=== PATIENT | male | born 1975 | race Caucasian/White ===

== ENCOUNTER 2017-06-28 20:09 | Inpatient (IN) | payer BC, OTHER ==
[2017-06-28] MEDS ORDERED: Etomidate 2 MG/ML 20 ML SDV IVPUSH ONE ×2 (20:20→21:08)
[2017-06-28] MEDS ORDERED: Diphtheria,Pertussis(Acell),Tetanus Vaccine 0.5 ML SDV IM ONE (20:32)
--- NOTE | 2017-06-28 20:34 | EDM.PDOC ---
ED HPI GENERAL MEDICAL PROBLEM - General Chief Complaint: Upper Extremity Injury/Pain Stated Complaint: [facility] Time Seen by Provider: 06/28/17 20:10 Source of Information: Reports: Patient History Limitations: Reports: No Limitations - History of Present Illness INITIAL COMMENTS - FREE TEXT/NARRATIVE: 42-year-old male presents to the ED with an acute injury to his right lower extremity. He states he was riding a 15-year-old horse more or less in a circular fashion when the horse decided to get run she. He decided to exit the horse and stepped off pivoting his right foot on the ground with a horse still moving. Is unsure if the horse may have stepped on versus acute severe twisting injury to his ankle. At any rate he went down to the ground and identified that there was a bone sticking through the medial aspect of his cowboy boot. The ambulance was summoned. He was actually already in a half ton truck 1 ambulance met them. He was given 1 mg of morphine 2 doses en route to the hospital as he indicated he is very sensitive to medications. Clear when his last tetanus toxoid was updated. Denies any allergies. Takes only lisinopril daily for hypertension. Last meal was around 1730 hrs. today. Onset: Today Onset Date: 06/28/17 Onset Time: 19:10 Duration: Minutes: Location: Reports: Lower Extremity, Right (Ankle) Right Lower Leg Pain Score (Numeric/FACES): 5 - Related Data Allergies Allergy/AdvReac Type Severity Reaction Status Date / Time No Known Allergies Allergy Verified 06/28/17 21:28 Home Meds: Home Meds FLUoxetine [PROzac] 10 mg PO BEDTIME 06/28/17 [History] Lisinopril 10 mg PO DAILY 06/28/17 [History] Past Medical History Cardiovascular History: Reports: Hypertension Psychiatric History: Reports: Anxiety - Past Surgical History HEENT Surgical History: Reports: Adenoidectomy, Naso-Sinus Surgery, Tonsillectomy GI Surgical History: Reports: Appendectomy, Hernia Repair/Other Other Male Surgeries/Procedures: Testicle surg Other Neurological Surgeries/Procedures: "nerve cut" Musculoskeletal Surgical History: Reports: Shoulder Surgery Other Musculoskeletal Surgeries/Procedures:: Knee Social & Family History - Living Situation & Occupation Living situation: Reports: Occupation: Employed Review of Systems - Review of Systems Review Of Systems: See Below Constitutional: Reports: No Symptoms Eyes: Reports: No Symptoms Ears: Reports: No Symptoms Nose: Reports: No Symptoms Mouth/Throat: Reports: No Symptoms Respiratory: Reports: No Symptoms Cardiovascular: Reports: No Symptoms GI/Abdominal: Reports: No Symptoms Genitourinary: Reports: No Symptoms Musculoskeletal: Reports: Back Pain (Occasional problems with back pain.) Skin: Reports: No Symptoms Neurological: Reports: No Symptoms Psychiatric: Reports: No Symptoms ED EXAM, GENERAL - Physical Exam Exam: See Below Exam Limited By: No Limitations General Appearance: Alert, WD/WN, Mild Distress Eye Exam: Bilateral Eye: Normal Inspection (In obvious pain and discomfort.) Ears: Normal TMs Throat/Mouth: Normal Inspection, Normal Lips, Normal Oropharynx, Other (No injuries to the oropharyngeal cavity bite andrea to the tongue etc.) Head: Atraumatic, Normocephalic Neck: Normal Inspection, Supple, Non-Tender, Full Range of Motion. No: Lymphadenopathy (L), Lymphadenopathy (R) Respiratory/Chest: No Respiratory Distress, Lungs Clear, Normal Breath Sounds, No Accessory Muscle Use, Other (No pain on compression of ribs and sternum.) Cardiovascular: Normal Peripheral Pulses, Regular Rate, Rhythm, No Edema, No Gallop, No Murmur Peripheral Pulses: 3+: Posterior Tibial (L), Dorsalis Pedis (L), Dorsalis Pedis (R) GI/Abdominal: Normal Bowel Sounds, Soft, Non-Tender, No Organomegaly, No Distention Back Exam: Normal Inspection, Full Range of Motion Extremities: Normal Inspection, Normal Range of Motion, Non-Tender, No Pedal Edema, Normal Capillary Refill Neurological: Alert, Oriented, CN II-XII Intact, Normal Cognition Psychiatric: Normal Affect, Normal Mood EKG INTERPRETATION EKG Date: 06/28/17 Time: 21:15 Rhythm: NSR Rate (Beats/Min): 76 [place]: Normal P-Wave: Present QRS: Normal ST-T: Normal QT: Prolonged (Slightly prolonged for rate.) EKG Interpretation Comments: Normal ECG Course - Vital Signs Last Recorded V/S: Last Vital Signs Temp 36.7 C 06/28/17 21:14 Pulse 88 06/28/17 21:14 Resp 18 06/28/17 21:14 BP 150/85 H 06/28/17 21:14 Pulse Ox 98 06/28/17 21:14 - Orders/Labs/Meds Orders: Active Orders 24 hr Category Date Time Status Vaccines to be Administered [RC] PER UNIT ROUTINE Care 06/28/17 20:32 Active Ankle Min 3V Rt [CR] Stat Exams 06/28/17 20:31 Ordered Tibia Fibula Rt [CR] Stat Exams 06/28/17 20:30 Ordered ABO/RH TYPE [BBK] Stat Lab 06/28/17 20:31 Ordered CBC WITH MANUAL DIFF [HEME] Stat Lab 06/28/17 20:31 Ordered COMPREHENSIVE METABOLIC PN,CMP [CHEM] Stat Lab 06/28/17 20:31 Ordered INR,PT,PROTHROMBIN TIME [COAG] Stat Lab 06/28/17 20:31 Ordered PTT,PARTIAL THROMBOPLSTIN TIME [COAG] Stat Lab 06/28/17 20:32 Ordered Sodium Chloride 0.9% [Normal Saline] 1,000 ml Med 06/28/17 20:30 Active IV ASDIRECTED ceFAZolin [Ancef] 2,000 mg Med 06/28/17 20:32 Active Sodium Chloride 0.9% [Normal Saline] 100 ml IV ONETIME Medication Orders Sodium Chloride (Normal Saline) 1,000 mls @ 200 mls/hr IV ASDIRECTED MATIAS Last Admin: 06/28/17 21:04 Dose: 200 mls/hr Cefazolin Sodium 2,000 mg/ (Sodium Chloride) 100 mls @ 100 mls/hr IV ONETIME ONE Stop: 06/28/17 21:31 Last Admin: 06/28/17 21:05 Dose: 100 mls/hr Meds: Medications Generic Name Dose Route Start Last Admin Trade Name Freq PRN Reason Stop Dose Admin Sodium Chloride 1,000 mls @ 200 mls/hr 06/28/17 20:30 06/28/17 21:04 Normal Saline IV 200 mls/hr ASDIRECTED MATIAS Administration Cefazolin Sodium 2,000 mg/ 100 mls @ 100 mls/hr 06/28/17 20:32 06/28/17 21:05 Sodium Chloride IV 06/28/17 21:31 100 mls/hr ONETIME ONE Administration Discontinued Medications Generic Name Dose Route Start Last Admin Trade Name Freq PRN Reason Stop Dose Admin Diphtheria/Tetanus/Acell Pertussis 0.5 ml 06/28/17 20:32 06/28/17 21:06 Adacel IM 06/28/17 20:33 0.5 ml .ONCE ONE Administration Etomidate Confirm 06/28/17 20:20 06/28/17 21:07 Amidate Administered 06/28/17 20:21 Not Given Dose 40 mg IVPUSH .STK-MED ONE Etomidate 24 mg 06/28/17 21:08 Amidate IVPUSH 06/28/17 21:09 ONETIME ONE Hydromorphone HCl Confirm 06/28/17 20:42 06/28/17 21:06 Dilaudid Administered 06/28/17 20:43 Not Given Dose 0.5 mg .ROUTE .STK-MED ONE Hydromorphone HCl 0.5 mg 06/28/17 21:08 Dilaudid IVPUSH 06/28/17 21:09 ONETIME ONE - Radiology Interpretation Free Text/Narrative:: 42-year-old male presents to the ED with an acute injury to his right lower extremity i.e. ankle area. Patient states he was riding a horse in a circular fashion when the horse became a little bit out of control. He elected to get off a horse and when his right leg hit the ground I suspect there was a violent twisting force to the ankle and foot as his foot planted. Immediately hit the ground and appreciated that his leg bone and exited the medial aspect of his cowboy boot. He did not hit his head he did not hurt his neck he denies any chest pain or rib pain. Only pain was to his right lower extremity. [place]. He reports that he is extremely sensitive to medications. He did receive 1 mg of morphine 2 doses en route which took his pain from a 07/21/05. Unclear when his last tetanus toxoid was and therefore will be updated in the ED. Plan he will require sedation for us to allow removal of his, but boot and expose the fracture site. - Re-Assessments/Exams Free Text/Narrative Re-Assessment/Exam: 06/28/17 21:00: Patient received etomidate 0.3 mg/kg with his weight of 85 kg. We did give him 12 mg of etomidate to facilitate removal of his cowboy boot and expose the tibial bone. Was unable to reduce it was the fact the distal tibia is very dirty and covered with grass and dirt. I therefore left it open as he will have to go to surgery at any rate. He will receive 2 g of Ancef intravenously. Once he aroused from the etomidate he was given Dilaudid 0.5 mg IV for pain relief. His wound was wrapped with a wet saline gauze and Kerlix. Dr. Larios orthopedic surgeon salon/spa manager will see him in consultation with a view to going to the OR for debridement and washing of the wound. 06/28/17 21:27 Dr. Larios today as asked the patient to be given gentamicin as well. He was given therefore 100 mg IV. ECG was sinus rhythm at 76/m with no abnormalities detected. Departure - Departure Time of Disposition: 21:31 Disposition: Admitted As Inpatient 65 Condition: Fair Clinical Impression: Open fracture of right distal tibia Qualifiers: Encounter type: initial encounter Open fracture type: open type III Fracture alignment: displaced Fracture of distal end of fibula Qualifiers: Encounter type: initial encounter Fracture type: closed - Discharge Information Forms: ED Department Discharge Additional Instructions: Patient to be admitted to the hospital due to open fracture distal right tibia and comminuted fracture distal fibula. Dr. Mcmahon orthopedic surgeon will be taking him to the OR shortly for definitive orthopedic surgical management. - My Orders Last 24 Hours: My Active Orders 06/28/17 20:30 Tibia Fibula Rt [CR] Stat Sodium Chloride 0.9% [Normal Saline] 1,000 ml IV ASDIRECTED 06/28/17 20:31 Ankle Min 3V Rt [CR] Stat ABO/RH TYPE [BBK] Stat CBC WITH MANUAL DIFF [HEME] Stat COMPREHENSIVE METABOLIC PN,CMP [CHEM] Stat INR,PT,PROTHROMBIN TIME [COAG] Stat 06/28/17 20:32 Vaccines to be Administered [RC] PER UNIT ROUTINE PTT,PARTIAL THROMBOPLSTIN TIME [COAG] Stat ceFAZolin [Ancef] 2,000 mg Sodium Chloride 0.9% [Normal Saline] 100 ml IV ONETIME - Assessment/Plan Last 24 Hours: My Active Orders 06/28/17 20:30 Tibia Fibula Rt [CR] Stat Sodium Chloride 0.9% [Normal Saline] 1,000 ml IV ASDIRECTED 06/28/17 20:31 Ankle Min 3V Rt [CR] Stat ABO/RH TYPE [BBK] Stat CBC WITH MANUAL DIFF [HEME] Stat COMPREHENSIVE METABOLIC PN,CMP [CHEM] Stat INR,PT,PROTHROMBIN TIME [COAG] Stat 06/28/17 20:32 Vaccines to be Administered [RC] PER UNIT ROUTINE PTT,PARTIAL THROMBOPLSTIN TIME [COAG] Stat ceFAZolin [Ancef] 2,000 mg Sodium Chloride 0.9% [Normal Saline] 100 ml IV ONETIME
[2017-06-28] MEDS ORDERED: HYDROmorphone 0.5 MG/0.5 ML Syringe ONE (20:42)
[2017-06-28] MEDS: Sodium Chloride 0.9% 1,000 ML IV SCH (21:04)
[2017-06-28] MEDS ORDERED: HYDROmorphone 0.5 MG/0.5 ML Syringe IVPUSH ONE (21:08)
--- NOTE | 2017-06-28 21:14 | PCM.PREANE ---
Preanesthetic Assessment - Anesthesia/Transfusion/Family Hx Anesthesia History: Prior Anesthesia Without Reaction Family History of Anesthesia Reaction: No Transfusion History: No Prior Transfusion(s) Intubation History: Unknown - Review of Systems General: No Symptoms Pulmonary: No Symptoms (smokes 1 pack/day for 25 years.) Cardiovascular: No Symptoms (HTN) Gastrointestinal: No Symptoms Neurological: No Symptoms Other: Reports: Sinus Problem (seasonal allergies), Depression, Anxiety - Physical Assessment NPO Status Date: 06/28/17 NPO Status Time: 17:30 Pulse: 88 O2 Sat by Pulse Oximetry: 98 Respiratory Rate: 18 Blood Pressure: 150/85 Temperature: 36.7 C Vital Signs: Last Vital Signs Temp 36.7 C 06/28/17 20:18 Pulse 88 06/28/17 20:18 Resp 18 06/28/17 20:18 BP 150/85 H 06/28/17 20:18 Pulse Ox 98 06/28/17 20:18 Height: 1.8 m Weight: 85 kg ASA Class: 2E Mental Status: Alert & Oriented x3 Airway Class: Mallampati = 2 Dentition: Reports: Normal Dentition, Caries Thyro-Mental Finger Breadths: 3 Mouth Opening Finger Breadths: 3 ROM/Head Extension: Full Lungs: Clear to Auscultation, Normal Respiratory Effort Cardiovascular: Regular Rate, Regular Rhythm - Lab Values: All values reviewed and noted and within acceptable ranges to proceed with scheduled surgery. - Imaging/EKG Impressions: EKG: SR rate=77 minimal QT prolongation for rte. - Allergies Allergies/Adverse Reactions: Allergies Allergy/AdvReac Type Severity Reaction Status Date / Time No Known Allergies Allergy Verified 06/28/17 21:28 - Anesthesia Plan Pre-Op Medication Ordered: None - Acknowledgements Anesthesia Type Planned: General Anesthesia Pt an Appropriate Candidate for the Planned Anesthesia: Yes Alternatives and Risks of Anesthesia Discussed w Pt/Guardian: Yes Pt/Guardian Understands and Agrees with Anesthesia Plan: Yes PreAnesthesia Questionnaire Cardiovascular History: Reports: Hypertension Psychiatric History: Reports: Anxiety - Past Surgical History HEENT Surgical History: Reports: Adenoidectomy, Naso-Sinus Surgery, Tonsillectomy GI Surgical History: Reports: Appendectomy, Hernia Repair/Other Other Male Surgeries/Procedures: Testicle surg Other Neurological Surgeries/Procedures: "nerve cut" Musculoskeletal Surgical History: Reports: Shoulder Surgery Other Musculoskeletal Surgeries/Procedures:: Knee - SUBSTANCE USE Smoking Status *Q: Current Status Unknown Recreational Drug Use History: No - HOME MEDS Home Medications: Home Meds FLUoxetine [PROzac] 10 mg PO BEDTIME 06/28/17 [History] Lisinopril 10 mg PO DAILY 06/28/17 [History] - CURRENT (IN HOUSE) MEDS Current Meds: Current Medications Sodium Chloride (Normal Saline) 1,000 mls @ 200 mls/hr IV ASDIRECTED MATIAS Last Admin: 06/28/17 21:04 Dose: 200 mls/hr Cefazolin Sodium 2,000 mg/ (Sodium Chloride) 100 mls @ 100 mls/hr IV ONETIME ONE Stop: 06/28/17 21:31 Last Admin: 06/28/17 21:05 Dose: 100 mls/hr Discontinued Medications Diphtheria/Tetanus/Acell Pertussis (Adacel) 0.5 ml IM .ONCE ONE Stop: 06/28/17 20:33 Last Admin: 06/28/17 21:06 Dose: 0.5 ml Etomidate (Amidate) Confirm Administered Dose 40 mg IVPUSH .STK-MED ONE Stop: 06/28/17 20:21 Last Admin: 06/28/17 21:07 Dose: Not Given Etomidate (Amidate) 24 mg IVPUSH ONETIME ONE Stop: 06/28/17 21:09 Hydromorphone HCl (Dilaudid) Confirm Administered Dose 0.5 mg .ROUTE .STK-MED ONE Stop: 06/28/17 20:43 Last Admin: 06/28/17 21:06 Dose: Not Given Hydromorphone HCl (Dilaudid) 0.5 mg IVPUSH ONETIME ONE Stop: 06/28/17 21:09
[2017-06-28] MEDS ORDERED: Gentamicin 40 MG/ML 2 ML Vial IV ONE (21:26)
[2017-06-28] MEDS ORDERED: Bupivacaine 0.25% 30 ML SDV ONE (21:28)
[2017-06-28] MEDS ORDERED: HYDROmorphone 1 MG/ML Syringe ONE ×2 (21:35→23:02)
[2017-06-28] MEDS ORDERED: Lidocaine 1% 4 ML ONE (21:35)
[2017-06-28] MEDS ORDERED: Dexamethasone 4 MG/ML SDV ONE (21:35)
[2017-06-28] MEDS ORDERED: Propofol 200 MG/20 ML SDV ONE ×2 (21:35→22:43)
[2017-06-28] MEDS ORDERED: Lactated Ringers 2,000 ML ONE (21:35)
[2017-06-28] MEDS ORDERED: Ondansetron 4 MG/2 ML SDV ONE (21:35)
[2017-06-28] MEDS ORDERED: Rocuronium 50 MG/5 ML Vial ONE (21:35)
[2017-06-28] MEDS ORDERED: fentaNYL 250 MCG/5 ML SDV ONE (21:36)
[2017-06-28] MEDS ORDERED: Midazolam 1 MG/ML 2 ML SDV ONE (21:36)
[2017-06-28] MEDS ORDERED: Acetaminophen/oxyCODONE 325-5 MG Tab PO PRN (21:44)
[2017-06-28] MEDS ORDERED: oxyCODONE 5 MG Tab PO PRN (21:44)
[2017-06-28] MEDS ORDERED: ceFAZolin 2 GM in Premix Bag 1 BAG IV SCH (21:45)
[2017-06-28] MEDS ORDERED: Gentamicin Pediatric 10 MG/ML 2 ML SDV ONE ×2 (23:04→23:05)
[2017-06-28] MEDS ORDERED: ePHEDrine 50 MG/ML SDV IVPUSH PRN (23:11)
[2017-06-28] MEDS ORDERED: fentaNYL 100 MCG/2 ML SDV IVPUSH PRN (23:11)
[2017-06-28] MEDS ORDERED: Ondansetron 4 MG/2 ML SDV IVPUSH PRN (23:11)
[2017-06-28] MEDS ORDERED: Glycopyrrolate 0.2 MG/ML SDV ONE ×5 (23:14)
[2017-06-28] MEDS ORDERED: Neostigmine Methylsulfate 10 MG/10 ML MDV ONE (23:14)
[2017-06-28] MEDS ORDERED: Phenylephrine 1 MG in Sodium Chloride 0.9% 10 ML IV SCH (23:15)
[2017-06-28] MEDS ORDERED: Ketamine 500 mg/10 ML MDV ONE (23:56)
--- NOTE | 2017-06-29 00:24 | PCM.POSTAN ---
POST ANESTHESIA ASSESSMENT - MENTAL STATUS Mental Status: Alert - VITAL SIGNS Pulse Rate: 92 SaO2: 95 Resp Rate: 11 Blood Pressure: 148/82 Temperature: 37.2 C - RESPIRATORY Respiratory Status: Respiratory Rate WNL, Airway Patent, O2 Saturation Stable, Supplemental Oxygen - CARDIOVASCULAR CV Status: Pulse Rate WNL, Blood Pressure Stable - GASTROINTESTINAL GI Status: No Symptoms - POST OP HYDRATION Hydration Status: Adequate & Stable
[2017-06-29] MEDS: HYDROmorphone 0.5 MG/0.5 ML Syringe IVPUSH PRN ×9 (00:33→23:58)
[2017-06-29] MEDS: SODIUM CHLORIDE IV SCH ×8 (02:21→23:55)
[2017-06-29] MEDS: PENICILLIN POTASSIUM IV SCH ×8 (02:21→23:55)
[2017-06-29] MEDS: Sodium Chloride 0.9% 1,000 ML IV SCH ×2 (02:58→08:33)
[2017-06-29] MEDS ORDERED: Acetaminophen/oxyCODONE 325-5 MG Tab PO PRN (05:14)
[2017-06-29] MEDS ORDERED: HYDROmorphone 1 MG/ML Syringe IVPUSH ONE (05:19)
[2017-06-29] MEDS: oxyCODONE 5 MG Tab PO PRN ×3 (05:33→18:31)
[2017-06-29] MEDS: ceFAZolin 2 GM in Premix Bag 1 BAG IV SCH ×3 (05:50→21:03)
[2017-06-29] MEDS: Cyclobenzaprine 10 MG Tab PO PRN ×2 (08:31→17:53)
[2017-06-29] MEDS ORDERED: Bisacodyl 5 MG Tab PO PRN (09:05)
[2017-06-29] MEDS ORDERED: diphenhydrAMINE 50 MG/ML SDV IV PRN (09:05)
[2017-06-29] MEDS ORDERED: Docusate Sodium 100 MG Cap PO PRN (09:06)
[2017-06-29] MEDS ORDERED: Magnesium Hydroxide 400 MG/5 ML Susp 30 ML Cup PO PRN (09:06)
[2017-06-29] MEDS ORDERED: Naloxone 0.4 MG/ML SDV IV PRN (09:07)
[2017-06-29] MEDS ORDERED: Ondansetron 4 MG/2 ML SDV IVPUSH PRN (09:07)
--- NOTE | 2017-06-29 09:42 | PCM48HPAN ---
Post Anesthesia Note - EVALUATION WITHIN 48HRS OF ANESTHETIC Vital Signs in Normal Range: Yes Patient Participated in Evaluation: Yes Respiratory Function Stable: Yes Airway Patent: Yes Cardiovascular Function Stable: Yes Hydration Status Stable: Yes Pain Control Satisfactory: Yes Nausea and Vomiting Control Satisfactory: Yes Mental Status Recovered: Yes
[2017-06-29] MEDS: Lisinopril 10 MG Tab PO SCH (10:18)
[2017-06-29] MEDS: Enoxaparin 40 MG/0.4 ML Syringe SUBCUT SCH (10:19)
[2017-06-29] MEDS: Acetaminophen/oxyCODONE 325-5 MG Tab PO PRN ×3 (10:32→20:57)
[2017-06-29] MEDS ORDERED: Penicillin G Potassium 5,000,000 Unit Vial ONE ×2 (10:45→18:22)
[2017-06-29] MEDS: FLUoxetine 10 MG Cap PO SCH (20:57)
[2017-06-30] MEDS: oxyCODONE 5 MG Tab PO PRN ×3 (00:03→19:45)
[2017-06-30] MEDS: Acetaminophen/oxyCODONE 325-5 MG Tab PO PRN ×3 (02:18→14:31)
[2017-06-30] MEDS: SODIUM CHLORIDE IV SCH ×6 (03:49→23:16)
[2017-06-30] MEDS: PENICILLIN POTASSIUM IV SCH ×6 (03:49→23:16)
[2017-06-30] MEDS: Cyclobenzaprine 10 MG Tab PO PRN ×2 (03:50→15:24)
[2017-06-30] MEDS: ceFAZolin 2 GM in Premix Bag 1 BAG IV SCH ×3 (05:13→22:03)
[2017-06-30] MEDS: Saccharomyces Boulardii (Probiotic) 250 MG Cap PO SCH ×2 (08:53→20:43)
[2017-06-30] MEDS: HYDROmorphone 0.5 MG/0.5 ML Syringe IVPUSH PRN ×3 (08:54→20:42)
[2017-06-30] MEDS: Lisinopril 10 MG Tab PO SCH (08:55)
[2017-06-30] MEDS: Enoxaparin 40 MG/0.4 ML Syringe SUBCUT SCH (08:55)
--- NOTE | 2017-06-30 08:56 | CT ---
CT right ankle Technique: Multiple axial sections through the right ankle were obtained. Reconstructed coronal and sagittal images were obtained. Comparison: Previous right ankle x-ray of 06/28/17 is available. Findings: Comminuted distal tibial fracture is seen. One fracture line extends anteriorly within the tibia in an oblique direction orientated from the medial to lateral aspect of the tibia. This fracture line is displaced up to 7 mm. Additional fracture is noted to the medial and posterolateral aspects of the tibia with posterolateral fracture line being widened by about 1.0 cm. Fracture line medially is widened by about 1.6 mm. Slightly comminuted distal diaphyseal fibular fracture is seen which shows a displaced fragment in a medial direction. Diffuse soft tissue swelling is seen. Impression: 1. Comminuted distal tibial fracture with articular extension. Greatest displacement is about 1 cm. 2. Fibular shaft fracture with displaced fragment being seen. 3. Diffuse soft tissue swelling. Diagnostic code #3
--- NOTE | 2017-06-30 08:58 | CR ---
Right ankle: Four views of the right ankle were obtained. Bimalleolar fracture is seen with dislocation. Diffuse soft tissue swelling is noted. Fibular fracture shows mild comminution. Fracture also noted within the lateral edge of the distal tibia. Dislocation of the tibia is medially and posteriorly. Impression: 1. Fracture/dislocation with diffuse soft tissue swelling. Diagnostic code #5
--- NOTE | 2017-06-30 12:15 | CR ---
Right ankle: Seven fluoroscopic spot views were obtained of the right ankle. Comparison: Previous studies performed earlier on same day. Dislocation has been reduced. Ankle mortise is symmetric. Comminuted distal diaphyseal fracture within the fibula is seen. Fracture is noted off the corner of the lateral tibia as well as medial malleolar fracture. Study shows placement of internal to external fixation. Fluoroscopy time given as 49.0 seconds. Impression: 1. Reduction of previous fractures and dislocation. 2. Placement of internal and external fixation device. Diagnostic code #2
--- NOTE | 2017-06-30 12:15 | CR ---
Right tibia and fibula: Two views of the right tibia and fibula were obtained. Dislocation of the tibia in medial and posterior direction is seen. Ankle fracture is again noted. No proximal fracture is seen. Soft tissue swelling is noted. Impression: 1. Dislocated ankle with fracturing. 2. No proximal abnormality is seen. Diagnostic code #3
[2017-06-30] MEDS: FLUoxetine 10 MG Cap PO SCH (20:43)
[2017-07-01] MEDS: Cyclobenzaprine 10 MG Tab PO PRN ×2 (00:16→11:11)
[2017-07-01] MEDS: HYDROmorphone 0.5 MG/0.5 ML Syringe IVPUSH PRN ×2 (00:58→07:37)
[2017-07-01] MEDS: oxyCODONE 5 MG Tab PO PRN ×3 (02:57→14:42)
[2017-07-01] MEDS: Saccharomyces Boulardii (Probiotic) 250 MG Cap PO SCH (08:29)
[2017-07-01] MEDS: Enoxaparin 40 MG/0.4 ML Syringe SUBCUT SCH (08:29)
[2017-07-01] MEDS: Lisinopril 10 MG Tab PO SCH (09:55)
[2017-07-01 14:45] VITALS: BP 140/78
--- NOTE | 2017-07-01 16:53 | PCM.SURGPN ---
- General Info Date of Service: 07/01/17 POD#: 3 Functional Status: Reports: Pain Controlled, Tolerating Diet, Ambulating, Urinating, Other (The pt and his feel the pt is prepared for discharge to home.) - Patient Data Vitals - Most Recent: Last Vital Signs Temp 99.0 F 07/01/17 14:38 Pulse 106 H 07/01/17 14:38 Resp 16 07/01/17 14:38 BP 140/78 07/01/17 14:38 Pulse Ox 92 L 07/01/17 14:38 Weight - Most Recent: 185 lb 9.6 oz I&O - Last 24 Hours: Intake & Output 07/01/17 07/01/17 07/01/17 06:59 14:59 22:59 Intake Total 3053 360 900 Output Total 4580 1650 Balance -1527 360 -750 Lab Results Last 24 Hrs: Laboratory Results - last 24 hr 07/01/17 07/01/17 Range/Units 05:57 09:30 Gentamicin Peak 4.4 (4.0-10.0) ug/mL Gentamicin Trough 0.9 (0.0-1.9) ug/mL Med Orders - Current: Current Medications Discontinued Medications Bisacodyl (Dulcolax) 5 mg PO DAILY PRN PRN Reason: Constipation Bupivacaine HCl (Marcaine 0.25%) Confirm Administered Dose 30 ml .ROUTE .STK- MED ONE Stop: 06/28/17 21:29 Cyclobenzaprine HCl (Flexeril) 10 mg PO Q8H PRN PRN Reason: Spasms Last Admin: 07/01/17 11:11 Dose: 10 mg Dexamethasone (Dexamethasone) Confirm Administered Dose 4 mg .ROUTE .STK-MED ONE Stop: 06/28/17 21:36 Diphenhydramine HCl (Benadryl) 25 mg IV Q4H PRN PRN Reason: Itching Diphtheria/Tetanus/Acell Pertussis (Adacel) 0.5 ml IM .ONCE ONE Stop: 06/28/17 20:33 Last Admin: 06/28/17 21:06 Dose: 0.5 ml Docusate Sodium (Colace) 100 mg PO BID PRN PRN Reason: Constipation Last Admin: 06/29/17 20:57 Dose: 100 mg Enoxaparin Sodium (Lovenox) 40 mg SUBCUT DAILY MATIAS Last Admin: 07/01/17 08:29 Dose: 40 mg Ephedrine Sulfate (Ephedrine Sulfate) 5 mg IVPUSH ASDIRECTED PRN PRN Reason: Hypotension Etomidate (Amidate) Confirm Administered Dose 40 mg IVPUSH .STK-MED ONE Stop: 06/28/17 20:21 Last Admin: 06/28/17 21:07 Dose: Not Given Etomidate (Amidate) 24 mg IVPUSH ONETIME ONE Stop: 06/28/17 21:09 Last Admin: 06/28/17 20:30 Dose: 24 mg Fentanyl (Sublimaze) Confirm Administered Dose 250 mcg .ROUTE .STK-MED ONE Stop: 06/28/17 21:37 Fentanyl (Sublimaze) 50 mcg IVPUSH Q5M PRN PRN Reason: Pain Last Admin: 06/29/17 01:14 Dose: 50 mcg Fluoxetine HCl (Prozac) 10 mg PO BEDTIME [facility] Last Admin: 06/30/17 20:43 Dose: 10 mg Gentamicin Sulfate (Gentamicin) 100 mg IV ONETIME ONE Stop: 06/28/17 21:27 Last Admin: 06/29/17 08:43 Dose: Not Given Gentamicin Sulfate (Gentamicin) Confirm Administered Dose 20 mg .ROUTE .STK-MED ONE Stop: 06/28/17 23:05 Last Admin: 06/29/17 02:21 Dose: Not Given Gentamicin Sulfate (Gentamicin) Confirm Administered Dose 160 mg .ROUTE .STK- MED ONE Stop: 06/28/17 23:06 Last Admin: 06/29/17 02:21 Dose: Not Given Glycopyrrolate (Robinul) Confirm Administered Dose 0.2 mg .ROUTE .STK-MED ONE Stop: 06/28/17 23:15 Glycopyrrolate (Robinul) Confirm Administered Dose 0.2 mg .ROUTE .STK-MED ONE Stop: 06/28/17 23:15 Glycopyrrolate (Robinul) Confirm Administered Dose 0.2 mg .ROUTE .STK-MED ONE Stop: 06/28/17 23:15 Glycopyrrolate (Robinul) Confirm Administered Dose 0.2 mg .ROUTE .STK-MED ONE Stop: 06/28/17 23:15 Glycopyrrolate (Robinul) Confirm Administered Dose 0.2 mg .ROUTE .STK-MED ONE Stop: 06/28/17 23:15 Hydromorphone HCl (Dilaudid) Confirm Administered Dose 0.5 mg .[address]OUTE .[facility] ONE Stop: 06/28/17 20:43 Last Admin: 06/28/17 21:06 Dose: Not Given Hydromorphone HCl (Dilaudid) 0.5 mg IVPUSH ONETIME ONE Stop: 06/28/17 21:09 Last Admin: 06/28/17 20:42 Dose: 0.5 mg Hydromorphone HCl (Dilaudid) Confirm Administered Dose 1 mg .ROUTE .[facility]-MED ONE Stop: 06/28/17 21:36 Hydromorphone HCl (Dilaudid) Confirm Administered Dose 1 mg .ROUTE .[facility] ONE Stop: 06/28/17 23:03 Hydromorphone HCl (Dilaudid) 0.5 mg IVPUSH Q15M PRN PRN Reason: severe pain Last Admin: 06/29/17 01:01 Dose: 0.5 mg Hydromorphone HCl (Dilaudid) 0.2 mg IVPUSH Q2H PRN PRN Reason: Pain Last Admin: 06/29/17 04:52 Dose: 0.2 mg Hydromorphone HCl (Dilaudid) 1 mg IVPUSH ONETIME ONE Stop: 06/29/17 05:20 Last Admin: 06/29/17 05:37 Dose: 0.2 mg Hydromorphone HCl (Dilaudid) 0.5 mg IVPUSH Q2H PRN PRN Reason: Pain Last Admin: 07/01/17 07:37 Dose: 0.5 mg Sodium Chloride (Normal Saline) 1,000 mls @ 200 mls/hr IV ASDIRECTED MATIAS Last Admin: 06/29/17 08:33 Dose: 200 mls/hr Cefazolin Sodium 2,000 mg/ (Sodium Chloride) 100 mls @ 100 mls/hr IV ONETIME ONE Stop: 06/28/17 21:31 Last Admin: 06/28/17 21:05 Dose: 100 mls/hr Lidocaine HCl (Xylocaine-Mpf 1%) Confirm Administered Dose 4 mls @ as directed .ROUTE .[facility] ONE Stop: 06/28/17 21:36 Lactated Ringer's (Ringers, Lactated) Confirm Administered Dose 2,000 mls @ as directed .ROUTE .STK-MED ONE Stop: 06/28/17 21:36 Penicillin G Potassium 4 (millunits/ Sodium Chloride) 100 mls @ 55 mls/hr IV Q4H [facility] Stop: 06/30/17 22:31 Last Admin: 06/29/17 10:31 Dose: Not Given Phenylephrine HCl 1 mg/ Sodium (Chloride) 10.1 mls @ 1 mls/sec IV TITRATE [facility] PRN Reason: Protocol Penicillin G Potassium 4 (millunits/ Sodium Chloride) 100 mls @ 55 mls/hr IV Q4H [facility] Stop: 07/01/17 00:50 Last Admin: 06/30/17 23:16 Dose: 55 mls/hr Cefazolin Sodium/Dextrose 2 gm (/ Premix) 50 mls @ 100 mls/hr IV Q8H [facility] Stop: 06/29/17 22:29 Last Admin: 06/29/17 21:03 Dose: 100 mls/hr Gentamicin Sulfate 150 mg/ (Sodium Chloride) 103.75 mls @ 103.75 mls/hr IV Q8H [facility] Last Admin: 06/30/17 14:26 Dose: 103 mls/hr Cefazolin Sodium/Dextrose 2 gm (/ Premix) 50 mls @ 100 mls/hr IV Q8H [facility] Stop: 06/30/17 22:29 Last Admin: 06/30/17 22:03 Dose: 100 mls/hr Gentamicin Sulfate 150 mg/ (Sodium Chloride) 103.75 mls @ 103.75 mls/hr IV Q8H [facility] Last Admin: 07/01/17 14:29 Dose: Not Given Ketamine HCl (Ketalar) Confirm Administered Dose 500 mg .ROUTE .STK-MED ONE Stop: 06/28/17 23:57 Lisinopril (Prinivil) 10 mg PO DAILY [facility] Last Admin: 07/01/17 09:55 Dose: 10 mg Magnesium Hydroxide (Milk Of Magnesia) 30 ml PO BID PRN PRN Reason: Constipation Midazolam HCl (Versed 1 Mg/Ml) Confirm Administered Dose 2 mg .ROUTE .STK-MED ONE Stop: 06/28/17 21:37 Naloxone HCl (Narcan) 0.1 mg IV Q5M PRN PRN Reason: OVERSEDATION Neostigmine Methylsulfate (Neostigmine Methylsulfate) Confirm Administered Dose 10 mg .ROUTE .STK-MED ONE Stop: 06/28/17 23:15 Ondansetron HCl (Zofran) Confirm Administered Dose 4 mg .ROUTE .STK-MED ONE Stop: 06/28/17 21:36 Ondansetron HCl (Zofran) 4 mg IVPUSH ONETIME PRN PRN Reason: Nausea/Vomiting Ondansetron HCl (Zofran) 4 mg IVPUSH Q6H PRN PRN Reason: Nausea/Vomiting Oxycodone HCl (Oxycodone) 5 mg PO Q6H PRN PRN Reason: pain Last Admin: 07/01/17 14:42 Dose: 5 mg Oxycodone/Acetaminophen (Percocet 325-5 Mg) 1 tab PO Q4H PRN PRN Reason: Pain Last Admin: 06/29/17 06:23 Dose: 1 tab Oxycodone/Acetaminophen (Percocet 325-5 Mg) 1 - 2 tab PO Q4H PRN PRN Reason: Pain Last Admin: 06/30/17 14:31 Dose: 2 tab Penicillin G Potassium (Pfizerpen) Confirm Administered Dose 5 millunits .ROUTE .STK-MED ONE Stop: 06/29/17 10:46 Last Admin: 06/29/17 11:31 Dose: Not Given Penicillin G Potassium (Pfizerpen) Confirm Administered Dose 5 millunits .ROUTE .STK-MED ONE Stop: 06/29/17 18:23 Last Admin: 06/29/17 20:24 Dose: Not Given Propofol (Diprivan 20 Ml) Confirm Administered Dose 200 mg .ROUTE .STK-MED ONE Stop: 06/28/17 21:36 Propofol (Diprivan 20 Ml) Confirm Administered Dose 200 mg .ROUTE .STK-MED ONE Stop: 06/28/17 22:44 Rocuronium [place] (Zemuron) Confirm Administered Dose 50 mg .ROUTE .STK-MED ONE Stop: 06/28/17 21:36 Saccharomyces Boulardii (Florastor) 250 mg PO BID MATIAS Last Admin: 07/01/17 08:29 Dose: 250 mg Senna/Docusate Sodium (Senna Plus) 1 tab PO BID PRN PRN Reason: Constipation - Exam Wound/Incisions: Other (No active bleeding noted on dressings/bandages. ) Lungs: Normal Respiratory Effort Extremities: Other (The pt was able to flex and extend toes of right foot. He was able to sense touch at the toes.) - Problem List Review Problem List Initiated/Reviewed/Updated: Yes - My Orders Last 24 Hours: Active Orders 24 hr Category Date Time Status Ready for Discharge [RC] PER UNIT ROUTINE Care 07/01/17 14:10 Active - Assessment Assessment (Free Text/Narrative):: POD#3 - irrigation and debridement and external fixator placement of left pilon fracture - Plan Plan (Free Text/Narrative):: 1. Discharge to home today. 2. NWB RLE. 3. Lovenox, frequent mobility. 4. Follow-up at the Clinic next week to discuss ORIF of right pilon fracture. The pt's case was discussed with Dr. Larios.
--- NOTE | 2017-07-02 07:02 | PCM.HP ---
H&P History of Present Illness - General Date of Service: 06/28/17 Source of Information: Patient, Provider History Limitations: Reports: No Limitations - History of Present Illness Initial Comments - Free Text/Narative: This is a 42 year old male who was riding a horse this evening when he jumped off and either had his right foot stepped on or it twisted and patient saw bone sticking out of his cowboy boot. Patient was subsequently brought to the emergency room where he was found to have an open right pilon fracture dislocation. Patient was given Ancef and tetanus update and I was contacted at that time. Patient denies any other injury other than the right ankle and denies previous pain to that area. Right Lower Leg Pain Score (Numeric/FACES): 6 - Related Data Allergies/Adverse Reactions: Allergies Allergy/AdvReac Type Severity Reaction Status Date / Time No Known Allergies Allergy Verified 06/28/17 21:28 Home Medications: Home Meds FLUoxetine [PROzac] 10 mg PO BEDTIME 06/28/17 [History] Lisinopril 10 mg PO DAILY 06/28/17 [History] Acetaminophen/oxyCODONE [Percocet 325-5 MG] 1 - 2 tab PO Q4H PRN #60 tablet 10/05 [Rx] Cyclobenzaprine [Flexeril] 10 mg PO Q8H PRN #40 tablet 07/01/17 [Rx] Docusate Sodium [Colace] 100 mg PO BID PRN cap 07/01/17 [Rx] Enoxaparin [Lovenox] 40 mg SUBCUT DAILY #14 syringe 07/01/17 [Rx] Saccharomyces Boulardii [Florastor] 250 mg PO BID cap 07/01/17 [Rx] Sennosides [Senna] 8.6 mg PO BID PRN tablet 07/01/17 [Rx] oxyCODONE 5 mg PO Q6H PRN #40 tablet 07/01/17 [Rx] Past Medical History Cardiovascular History: Reports: Hypertension Psychiatric History: Reports: Anxiety - Infectious Disease History Infectious Disease History: Reports: Chicken Pox - Past Surgical History HEENT Surgical History: Reports: Adenoidectomy, Naso-Sinus Surgery, Tonsillectomy GI Surgical History: Reports: Appendectomy, Hernia Repair/Other Other Male Surgeries/Procedures: Testicle surg Other Neurological Surgeries/Procedures: "nerve cut" Musculoskeletal Surgical History: Reports: Shoulder Surgery Other Musculoskeletal Surgeries/Procedures:: Knee Social & Family History - Family History Family Medical History: Noncontributory - Tobacco Use Smoking Status *Q: Current Every Day Smoker Years of Tobacco use: 30 Packs/Tins Daily: 0.5 Used Tobacco, but Quit: No - Caffeine Use Caffeine Use: Reports: Coffee - Recreational Drug Use Recreational Drug Use: No - Living Situation & Occupation Living situation: Reports: Occupation: Employed H&P Review of Systems - Review of Systems: Review Of Systems: ROS reveals no pertinent complaints other than HPI. Exam - Exam Exam: See Below - Vital Signs Vital Signs: Last Vital Signs Temp 37.2 C 07/01/17 14:38 Pulse 106 H 07/01/17 14:38 Resp 16 07/01/17 14:38 BP 140/78 07/01/17 14:38 Pulse Ox 92 L 07/01/17 14:38 Weight: 84.187 kg - Exam General: Alert, Cooperative Lungs: Normal Respiratory Effort Cardiovascular: Regular Rate, Regular Rhythm Physical Exam Comments:: RLE: large 10 cm open area noted over the medial malleolar region of the right ankle, exposed bone and mortise is noted with the posterior tibial tendon noted anteriorly to the bone, able to move all toes, sensation intact to light touch the medial, lateral, plantar, and dorsum of the foot, less than 2 second capillary refill of all toes, denies pain to the proximal fibula or knee, no calf tenderness, compartments are soft and compressible - Patient Data Lab Results Last 24 hrs: Laboratory Results - last 24 hr 07/01/17 07/01/17 Range/Units 05:57 09:30 Gentamicin Peak 4.4 (4.0-10.0) ug/mL Gentamicin Trough 0.9 (0.0-1.9) ug/mL Result Diagrams: 06/28/17 20:55 06/28/17 20:55 *Q Meaningful Use (ADM) - VTE *Q VTE Criteria *Q: - Stroke *Q Stroke Criteria *Q: - AMI *Q AMI Criteria *Q: Problem List Initiated/Reviewed/Updated: Yes Orders Last 24hrs: Active Orders 24 hr Category Date Time Status Ready for Discharge [RC] PER UNIT ROUTINE Care 07/01/17 14:10 Active Assessment/Plan Comment:: A: grade 2 open pilon fracture right ankle P: At this time I discussed with the and the patient that this is a surgical emergency and we need to take him to surgery to reduce the ankle and put an external fixator on with possible wound vac placement. Patient and his were in understanding and the risks, benefits, complications, and alternatives were discussed. We will proceed with this plan. Patient was given Gentamicin as well as Penicillin G secondary to the nature of the open injury. He will be admitted for pain control as well as observation for compartment syndrome after surgery. Definitive fixation will be in roughly two weeks from now.
--- NOTE | 2017-07-02 07:07 | PCM.OPNOTE ---
- General Post-Op/Procedure Note Date of Surgery/Procedure: 06/28/17 Operative Procedure(s): irrigation and debridement right open pilon fracture with great than ten square centemiters of soft tissue and bone with external fixation Pre Op Diagnosis: grade 2 open right pilon fracture with fibula fracture Post-Op Diagnosis: Same Anesthesia Technique: General ET Tube Primary Surgeon: Ranjeet Larios Anesthesia Provider: Di Dinero Doughnut Machine Operator Helper: Scooter Child EBL in mLs: 100 Complications: None Condition: Good Free Text/Narrative:: Intake & Output 07/01/17 07/02/17 07/02/17 22:59 06:59 14:59 Intake Total 900 Output Total 1650 Balance -750
--- NOTE | 2017-07-02 11:00 | OR ---
DATE OF OPERATION: 06/28/2017 SURGEON: Ranjeet Larios MD OPERATION PERFORMED: Irrigation and debridement, roughly 10 square cm of soft tissue and bone with external fixation of right open pilon fracture. PREOPERATIVE DIAGNOSIS: Grade 2 open right pilon fracture with fibula fracture. POSTOPERATIVE DIAGNOSIS: Grade 2 open right pilon fracture with fibula fracture. ANESTHESIA: General endotracheal intubation. ANESTHESIA PROVIDER: Di Dinero CRNA. SALES REPRESENTATIVE RURAL POWER: Scooter Child MD. ESTIMATED BLOOD LOSS: 100 mL. COMPLICATIONS: None. CONDITION: Stable. DESCRIPTION OF PROCEDURE: The patient was identified in the emergency room. Proper site was then marked and identified. The patient was taken back to the operating theater, where after adequate anesthesia, the patient's right lower extremity was sterilely prepped and draped with the Betadine scrub. At this time, OR-wide time-out was performed. The patient already had antibiotics running from the emergency room. At this time, 9 L of normal saline was irrigated through the medial wound over the distal aspect of the right leg near the medial malleolus. At this time, there was no gross contamination noted. There were free-floating pieces of bone that were debrided out. All nonviable skin and tissues were also debrided back to good bleeding edges. The posterior tibial tendon was found to be anterior. The posterior neurovascular bundle was posterior and still intact. Once 9 L of saline was irrigated and the debridement was completed, the ankle mortise was reduced. Under C-arm fluoroscopy, it was found to be reduced both in AP and lateral fashion. At this time, stab incisions were made proximal in the tibia, making sure to be more proximal than where the plates will be during the secondary surgery. Drill holes were then drilled for 4.0 pins and two 4.0 partially-threaded pins for the Imelda II external fixator were placed. At this time, a transfixation pin through the calcaneus was placed. A small stab incision was made medially, and the pin was placed across from medial to lateral. At this time, the bar and pin system were erected for a multiplanar external fixator of the right lower extremity to correct both varus and valgus and procurvatum/recurvatum. At this time, traction was applied under C-arm fluoroscopy until the ankle mortise was found to be roughly symmetric and length was restored. At this time, all the bars were tightened and it was found to have adequate fixation under C-arm fluoroscopy with near anatomic reduction on both the AP and lateral views. At this time, another 3 L of saline was irrigated through the wound. 3-0 PDS was used for the closure of the laceration subcutaneously and 3-0 nylon was used for the skin closure. At this time, a sterile soft dressing was applied to the external fixator as well to the previous wound. The patient's right lower extremity had an Max wrap applied. The patient was sent to the PACU in a stable condition and will be admitted for observation at least for 1 night. The patient tolerated the procedure well. JANETT /[id number]
--- NOTE | 2017-07-02 11:50 | PCM.DCSUM1 ---
Discharge Summary - Hospital Course Brief History: Carlito is a 42 yo male who was evaluated by the ED on 06-28-2017 for open right pilon fracture. The pt underwent I&D of open fracture and placement of external fixator with Dr. Larios on 06-28-2017. The pt was admitted to the Medical-Surgical Unit for pain management, physical therapy and IV antibiotic administration. The pt's Hospital course was uneventful. On POD#1, Lovenox 40mg daily was initiated for VTE prophylaxis. SCDs and TEDs were also ordered. The pt's post-operative dressings were reinforced as needed. The pt participated in P.T. and progressed well. He was NWB for the RLE. On POD#3, the pt was deemed appropriate to discharge to home with his and will follow -up at the outpatient orthopedic clinic. - Discharge Data Discharge Date: 07/01/17 Discharge Disposition: Home, Self-Care 01 Condition: Good - Patient Summary/Data Operative Procedure(s) Performed: irrigation and debridement right open pilon fracture with great than ten square centemiters of soft tissue and bone with external fixation - Patient Instructions Diet: Usual Diet as Tolerated Activity: Apply Ice, As Tolerated, Elevate Extremity, Non Weight Bearing Driving: Do Not Drive Showering/Bathing: May Shower Showering/Bathing, Other: Keep the bandages covered with showering. Wound/Incision Care: Keep Operative Site/Wound Site Clean and Dry, Do NOT Change Dressing Notify Provider of: Fever, Increased Pain, Swelling and Redness, Drainage, Nausea and/or Vomiting Other/Special Instructions: Please get up and moving around every hour while awake. This helps to prevent blood clots. Have help with mobility as needed and use the walker or crutches. Please take the blood thinner medication as prescribed. This helps to prevent blood clots. Wear the EDMOND hose during the day and you may remove these at night. Elevate the limb to decrease swelling. Use the ice machine often. Use the pain medication as needed. The medication may cause drowsiness and/or constipation. You could use a stool softener like docusate sodium or Colace 100mg twice daily and/or a laxative like Miralax daily. Contact your primary care provider for other instructions if you are constipated. Use the incentive spirometer often. Keep the bandages and dressings at the surgical site in place until follow-up at the Clinic. Please call the Clinic with questions or concerns [phone]. - Discharge Plan Prescriptions/Med Rec: Acetaminophen/oxyCODONE [Percocet 325-5 MG] 1 - 2 tab PO Q4H PRN #60 tablet PRN Reason: Pain Cyclobenzaprine [Flexeril] 10 mg PO Q8H PRN #40 tablet PRN Reason: Spasms Enoxaparin [Lovenox] 40 mg SUBCUT DAILY #14 syringe oxyCODONE 5 mg PO Q6H PRN #40 tablet PRN Reason: Pain Home Medications: Home Meds FLUoxetine [PROzac] 10 mg PO BEDTIME 06/28/17 [History] Lisinopril 10 mg PO DAILY 06/28/17 [History] Acetaminophen/oxyCODONE [Percocet 325-5 MG] 1 - 2 tab PO Q4H PRN #60 tablet 10/05 [Rx] Cyclobenzaprine [Flexeril] 10 mg PO Q8H PRN #40 tablet 07/01/17 [Rx] Docusate Sodium [Colace] 100 mg PO BID PRN cap 07/01/17 [Rx] Enoxaparin [Lovenox] 40 mg SUBCUT DAILY #14 syringe 07/01/17 [Rx] Saccharomyces Boulardii [Florastor] 250 mg PO BID cap 07/01/17 [Rx] Sennosides [Senna] 8.6 mg PO BID PRN tablet 07/01/17 [Rx] oxyCODONE 5 mg PO Q6H PRN #40 tablet 07/01/17 [Rx] Patient Handouts: Smoking Hazards, Ankle Fracture, How to Care for an External Fixator, Smoking Cessation, Tips for Success, Open Reduction of Displaced Trimalleolar Ankle Fracture, Care After, Pin Site Care, Displaced Fibular Ankle Fracture Treated With Open Reduction, Adult, Care After Forms: ED Department Discharge Referrals: Marian Walker PA-C [Physician Manager Net] - 07/08/17 1:15 pm ([facility] Edmond Quiros MD [Primary Care Provider] - (Follow-up as needed.) - Patient Data Vitals - Most Recent: Last Vital Signs Temp 99.0 F 07/01/17 14:38 Pulse 106 H 07/01/17 14:38 Resp 16 07/01/17 14:38 BP 140/78 07/01/17 14:38 Pulse Ox 92 L 07/01/17 14:38 Weight - Most Recent: 185 lb 9.6 oz I&O - Last 24 hours: Intake & Output 07/01/17 07/02/17 07/02/17 22:59 06:59 14:59 Intake Total 900 Output Total 1650 Balance -750 Med Orders - Current: Current Medications Discontinued Medications Bisacodyl (Dulcolax) 5 mg PO DAILY PRN PRN Reason: Constipation Bupivacaine HCl (Marcaine 0.25%) Confirm Administered Dose 30 ml .ROUTE .STK- MED ONE Stop: 06/28/17 21:29 Cyclobenzaprine HCl (Flexeril) 10 mg PO Q8H PRN PRN Reason: Spasms Last Admin: 07/01/17 11:11 Dose: 10 mg Dexamethasone (Dexamethasone) Confirm Administered Dose 4 mg .ROUTE .STK-MED ONE Stop: 06/28/17 21:36 Diphenhydramine HCl (Benadryl) 25 mg IV Q4H PRN PRN Reason: Itching Diphtheria/Tetanus/Acell Pertussis (Adacel) 0.5 ml IM .ONCE ONE Stop: 06/28/17 20:33 Last Admin: 06/28/17 21:06 Dose: 0.5 ml Docusate Sodium (Colace) 100 mg PO BID PRN PRN Reason: Constipation Last Admin: 06/29/17 20:57 Dose: 100 mg Enoxaparin Sodium (Lovenox) 40 mg SUBCUT DAILY MATIAS Last Admin: 07/01/17 08:29 Dose: 40 mg Ephedrine Sulfate (Ephedrine Sulfate) 5 mg IVPUSH ASDIRECTED PRN PRN Reason: Hypotension Etomidate (Amidate) Confirm Administered Dose 40 mg IVPUSH .STK-MED ONE Stop: 06/28/17 20:21 Last Admin: 06/28/17 21:07 Dose: Not Given Etomidate (Amidate) 24 mg IVPUSH ONETIME ONE Stop: 06/28/17 21:09 Last Admin: 06/28/17 20:30 Dose: 24 mg Fentanyl (Sublimaze) Confirm Administered Dose 250 mcg .ROUTE .STK-MED ONE Stop: 06/28/17 21:37 Fentanyl (Sublimaze) 50 mcg IVPUSH Q5M PRN PRN Reason: Pain Last Admin: 06/29/17 01:14 Dose: 50 mcg Fluoxetine HCl (Prozac) 10 mg PO BEDTIME MATIAS Last Admin: 06/30/17 20:43 Dose: 10 mg Gentamicin Sulfate (Gentamicin) 100 mg IV ONETIME ONE Stop: 06/28/17 21:27 Last Admin: 06/29/17 08:43 Dose: Not Given Gentamicin Sulfate (Gentamicin) Confirm Administered Dose 20 mg .ROUTE .STK-MED ONE Stop: 06/28/17 23:05 Last Admin: 06/29/17 02:21 Dose: Not Given Gentamicin Sulfate (Gentamicin) Confirm Administered Dose 160 mg .ROUTE .STK- MED ONE Stop: 06/28/17 23:06 Last Admin: 06/29/17 02:21 Dose: Not Given Glycopyrrolate (Robinul) Confirm Administered Dose 0.2 mg .ROUTE .STK-MED ONE Stop: 06/28/17 23:15 Glycopyrrolate (Robinul) Confirm Administered Dose 0.2 mg .ROUTE .STK-MED ONE Stop: 06/28/17 23:15 Glycopyrrolate (Robinul) Confirm Administered Dose 0.2 mg .ROUTE .STK-MED ONE Stop: 06/28/17 23:15 Glycopyrrolate (Robinul) Confirm Administered Dose 0.2 mg .ROUTE .STK-MED ONE Stop: 06/28/17 23:15 Glycopyrrolate (Robinul) Confirm Administered Dose 0.2 mg .ROUTE .STK-MED ONE Stop: 06/28/17 23:15 Hydromorphone HCl (Dilaudid) Confirm Administered Dose 0.5 mg .ROUTE .STK-MED ONE Stop: 06/28/17 20:43 Last Admin: 06/28/17 21:06 Dose: Not Given Hydromorphone HCl (Dilaudid) 0.5 mg IVPUSH ONETIME ONE Stop: 06/28/17 21:09 Last Admin: 06/28/17 20:42 Dose: 0.5 mg Hydromorphone HCl (Dilaudid) Confirm Administered Dose 1 mg .ROUTE .STK-MED ONE Stop: 06/28/17 21:36 Hydromorphone HCl (Dilaudid) Confirm Administered Dose 1 mg .ROUTE .STK-MED ONE Stop: 06/28/17 23:03 Hydromorphone HCl (Dilaudid) 0.5 mg IVPUSH Q15M PRN PRN Reason: severe pain Last Admin: 06/29/17 01:01 Dose: 0.5 mg Hydromorphone HCl (Dilaudid) 0.2 mg IVPUSH Q2H PRN PRN Reason: Pain Last Admin: 06/29/17 04:52 Dose: 0.2 mg Hydromorphone HCl (Dilaudid) 1 mg IVPUSH ONETIME ONE Stop: 06/29/17 05:20 Last Admin: 06/29/17 05:37 Dose: 0.2 mg Hydromorphone HCl (Dilaudid) 0.5 mg IVPUSH Q2H PRN PRN Reason: Pain Last Admin: 07/01/17 07:37 Dose: 0.5 mg Sodium Chloride (Normal Saline) 1,000 mls @ 200 mls/hr IV ASDIRECTED [facility] Last Admin: 06/29/17 08:33 Dose: 200 mls/hr Cefazolin Sodium 2,000 mg/ (Sodium Chloride) 100 mls @ 100 mls/hr IV ONETIME ONE Stop: 06/28/17 21:31 Last Admin: 06/28/17 21:05 Dose: 100 mls/hr Lidocaine HCl (Xylocaine-Mpf 1%) Confirm Administered Dose 4 mls @ as directed .ROUTE .STK-MED ONE Stop: 06/28/17 21:36 Lactated Ringer's (Ringers, Lactated) Confirm Administered Dose 2,000 mls @ as directed .ROUTE .STK-MED ONE Stop: 06/28/17 21:36 Penicillin G Potassium 4 (millunits/ Sodium Chloride) 100 mls @ 55 mls/hr IV Q4H [facility] Stop: 06/30/17 22:31 Last Admin: 06/29/17 10:31 Dose: Not Given Phenylephrine HCl 1 mg/ Sodium (Chloride) 10.1 mls @ 1 mls/sec IV TITRATE MATIAS PRN Reason: Protocol Penicillin G Potassium 4 (millunits/ Sodium Chloride) 100 mls @ 55 mls/hr IV Q4H [facility] Stop: 07/01/17 00:50 Last Admin: 06/30/17 23:16 Dose: 55 mls/hr Cefazolin Sodium/Dextrose 2 gm (/ Premix) 50 mls @ 100 mls/hr IV Q8H [facility] Stop: 06/29/17 22:29 Last Admin: 06/29/17 21:03 Dose: 100 mls/hr Gentamicin Sulfate 150 mg/ (Sodium Chloride) 103.75 mls @ 103.75 mls/hr IV Q8H [facility] Last Admin: 06/30/17 14:26 Dose: 103 mls/hr Cefazolin Sodium/Dextrose 2 gm (/ Premix) 50 mls @ 100 mls/hr IV Q8H [facility] Stop: 06/30/17 22:29 Last Admin: 06/30/17 22:03 Dose: 100 mls/hr Gentamicin Sulfate 150 mg/ (Sodium Chloride) 103.75 mls @ 103.75 mls/hr IV Q8H [facility] Last Admin: 07/01/17 14:29 Dose: Not Given Ketamine HCl (Ketalar) Confirm Administered Dose 500 mg .ROUTE .STK-MED ONE Stop: 06/28/17 23:57 Lisinopril (Prinivil) 10 mg PO DAILY [facility] Last Admin: 07/01/17 09:55 Dose: 10 mg Magnesium Hydroxide (Milk Of Magnesia) 30 ml PO BID PRN PRN Reason: Constipation Midazolam HCl (Versed 1 Mg/Ml) Confirm Administered Dose 2 mg .ROUTE .STK-MED ONE Stop: 06/28/17 21:37 Naloxone HCl (Narcan) 0.1 mg IV Q5M PRN PRN Reason: OVERSEDATION Neostigmine Methylsulfate (Neostigmine Methylsulfate) Confirm Administered Dose 10 mg .ROUTE .STK-MED ONE Stop: 06/28/17 23:15 Ondansetron HCl (Zofran) Confirm Administered Dose 4 mg .ROUTE .STK-MED ONE Stop: 06/28/17 21:36 Ondansetron HCl (Zofran) 4 mg IVPUSH ONETIME PRN PRN Reason: Nausea/Vomiting Ondansetron HCl (Zofran) 4 mg IVPUSH Q6H PRN PRN Reason: Nausea/Vomiting Oxycodone HCl (Oxycodone) 5 mg PO Q6H PRN PRN Reason: pain Last Admin: 07/01/17 14:42 Dose: 5 mg Oxycodone/Acetaminophen (Percocet 325-5 Mg) 1 tab PO Q4H PRN PRN Reason: Pain Last Admin: 06/29/17 06:23 Dose: 1 tab Oxycodone/Acetaminophen (Percocet 325-5 Mg) 1 - 2 tab PO Q4H PRN PRN Reason: Pain Last Admin: 06/30/17 14:31 Dose: 2 tab Penicillin G Potassium (Pfizerpen) Confirm Administered Dose 5 millunits .ROUTE .STK-MED ONE Stop: 06/29/17 10:46 Last Admin: 06/29/17 11:31 Dose: Not Given Penicillin G Potassium (Pfizerpen) Confirm Administered Dose 5 millunits .ROUTE .STK-MED ONE Stop: 06/29/17 18:23 Last Admin: 06/29/17 20:24 Dose: Not Given Propofol (Diprivan 20 Ml) Confirm Administered Dose 200 mg .ROUTE .STK-MED ONE Stop: 06/28/17 21:36 Propofol (Diprivan 20 Ml) Confirm Administered Dose 200 mg .ROUTE .STK-MED ONE Stop: 06/28/17 22:44 Rocuronium [place] (Zemuron) Confirm Administered Dose 50 mg .ROUTE .STK-MED ONE Stop: 06/28/17 21:36 Saccharomyces Boulardii (Florastor) 250 mg PO BID MATIAS Last Admin: 07/01/17 08:29 Dose: 250 mg Senna/Docusate Sodium (Senna Plus) 1 tab PO BID PRN PRN Reason: Constipation *Q Meaningful Use (DIS) - VTE *Q VTE Criteria *Q: - Stroke *Q Stroke Criteria *Q: - AMI *Q AMI Criteria *Q:
== END 2017-07-01 16:25 | disposition home or self-care (01) | DRG 492 ==
LOC: JD.ED 20:09 → JD.SDS 21:36 → JD.MS 06-29 00:06
PROVIDERS: ADMIT Orthopaedic Surgery; ATTEND Orthopaedic Surgery
PROC: 0QSG35Z Reposition Right Tibia with External Fixation Device, Percutaneous Approach (ICD-10-PCS; principal; 2017-06-29)
PROC: 0QBG0ZZ Excision of Right Tibia, Open Approach (ICD-10-PCS; 2017-06-29)
DX: S82.871B Displaced pilon fracture of right tibia, initial encounter for open fracture type I or II (principal); S82.401B Unspecified fracture of shaft of right fibula, initial encounter for open fracture type I or II; V80.010A Animal-rider injured by fall from or being thrown from horse in noncollision accident, initial encounter; Z79.899 Other long term (current) drug therapy; I10 Essential (primary) hypertension; F41.9 Anxiety disorder, unspecified; F17.210 Nicotine dependence, cigarettes, uncomplicated
CPT/HCPCS: 00400; 36415; 73590-26-RT; 73590-RT; 73610-26-RT; 73610-RT; 73700-26-RT; 73700-RT; 76000; 76000-26; 76377; 80053; 80170; 85025; 85610; 85730; 86900; 86901; 87641; 90471; 90715; 93005; 96365; 96375; 97116-GP; 97161-GP; 99285; 99285-25; A9270-GY; C1713; J0690; J1100; J1170; J1580; J1650; J2250; J2405; J2540; J2704; J2710; J3010; J3490; J7030; J7040; J7120

== ENCOUNTER 2017-07-14 07:06 | Inpatient (IN) | payer OTHER ==
--- NOTE | 2017-07-14 06:53 | PCM.PREANE ---
Preanesthetic Assessment - Anesthesia/Transfusion/Family Hx Anesthesia History: Prior Anesthesia Without Reaction Family History of Anesthesia Reaction: No Transfusion History: No Prior Transfusion(s) Intubation History: Unknown - Review of Systems General: Appetite (decreased appetite) Pulmonary: No Symptoms (Current smoker: 1 pack/day times 25 years.) Cardiovascular: No Symptoms (History of HTN) Gastrointestinal: No Symptoms, Constipation Neurological: No Symptoms Other: Reports: Sinus Problem (seasonal allergies), Depression, Anxiety - Physical Assessment NPO Status Date: 07/13/17 NPO Status Time: 22:00 Pulse: 106 O2 Sat by Pulse Oximetry: 97 Respiratory Rate: 16 Blood Pressure: 132/88 Temperature: 37.3 C Height: 1.8 m Weight: 84.187 kg ASA Class: 2 Mental Status: Alert & Oriented x3 Airway Class: Mallampati = 2 Dentition: Reports: Normal Dentition, Caries ROM/Head Extension: Full Lungs: Clear to Auscultation, Normal Respiratory Effort Cardiovascular: Regular Rate, Regular Rhythm, No Murmurs - Lab Values: -MRSA noted. All lab values noted and reviewed and within acceptable ranges to proceed with scheduled procedure. - Imaging/EKG Impressions: EKG: NSR rate= 76, QT segment slightly prolonged - Allergies Allergies/Adverse Reactions: Allergies Allergy/AdvReac Type Severity Reaction Status Date / Time No Known Allergies Allergy Verified 07/13/17 15:03 - Anesthesia Plan Pre-Op Medication Ordered: None - Acknowledgements Anesthesia Type Planned: General Anesthesia Pt an Appropriate Candidate for the Planned Anesthesia: Yes Alternatives and Risks of Anesthesia Discussed w Pt/Guardian: Yes Pt/Guardian Understands and Agrees with Anesthesia Plan: Yes PreAnesthesia Questionnaire Cardiovascular History: Reports: Hypertension Respiratory History: Reports: None INTERPERSONAL COMMUNICATIONS PROFESSOR History: Reports: None Musculoskeletal History: Reports: Other (See Below) Other Musculoskeletal History: ankle external fixator currently in place Psychiatric History: Reports: Anxiety Endocrine/Metabolic History: Reports: None Hematologic History: Reports: None Immunologic History: Reports: None Oncologic (Cancer) History: Reports: None Dermatologic History: Reports: None - Infectious Disease History Infectious Disease History: Reports: Chicken Pox - Past Surgical History Head Surgeries/Procedures: Reports: None HEENT Surgical History: Reports: Adenoidectomy, Naso-Sinus Surgery, Tonsillectomy Respiratory Surgical History: Reports: None GI Surgical History: Reports: Appendectomy, Hernia Repair/Other Other Male Surgeries/Procedures: Testicle surgery Endocrine Surgical History: Reports: None Other Neurological Surgeries/Procedures: "nerve cut" Musculoskeletal Surgical History: Reports: Shoulder Surgery Other Musculoskeletal Surgeries/Procedures:: Knee surgery Oncologic Surgical History: Reports: None Dermatological Surgical History: Reports: None - SUBSTANCE USE Smoking Status *Q: Current Every Day Smoker Tobacco Use Within Last Twelve Months: Cigarettes Recreational Drug Use History: No - HOME MEDS Home Medications: Home Meds FLUoxetine [PROzac] 20 mg PO BEDTIME 06/28/17 [History] Lisinopril 10 mg PO DAILY 06/28/17 [History] Acetaminophen/oxyCODONE [Percocet 325-5 MG] 1 - 2 tab PO Q4H PRN #60 tablet 10/05 [Rx] Cyclobenzaprine [Flexeril] 10 mg PO Q8H PRN #40 tablet 07/01/17 [Rx] Docusate Sodium [Colace] 100 mg PO BID PRN cap 07/01/17 [Rx] Enoxaparin [Lovenox] 40 mg SUBCUT DAILY #14 syringe 07/01/17 [Rx] Sennosides [Senna] 8.6 mg PO BID PRN tablet 07/01/17 [Rx] oxyCODONE 5 mg PO Q6H PRN #40 tablet 07/01/17 [Rx] - CURRENT (IN HOUSE) MEDS Current Meds: Current Medications Lactated Ringer's (Ringers, Lactated) 1,000 mls @ 125 mls/hr IV ASDIRECTED MATIAS Stop: 07/14/17 23:00 Lidocaine/Sodium Bicarbonate (Buffered Lidocaine 1% In Ns 8.4%) 0.25 ml .XX ONETIME PRN PRN Reason: Prior to IV Start Stop: 07/14/17 18:00 Sodium Chloride (Saline Flush) 10 ml FLUSH ASDIRECTED PRN PRN Reason: Keep Vein Open Stop: 07/14/17 18:00
[~2017-07-14 07:06] MED LIST changes: -Dexamethasone 4 MG/ML 5 ML MDV ONE; -Glycopyrrolate 0.2 MG/ML SDV ONE; -HYDROmorphone 1 MG/ML Syringe ONE; -Ketorolac 30 MG/ML SDV ONE; +Lactated Ringers 1,000 ML IV SCH; -Lactated Ringers 2,000 ML ONE; -Lidocaine 1% 4 ML ONE; +Lidocaine 1%/Sod Bicarbonate in NS 8.4% 1 ML Syringe PRN; -Midazolam 1 MG/ML 2 ML SDV ONE; -Neostigmine Methylsulfate 10 MG/10 ML MDV ONE; -Ondansetron 4 MG/2 ML SDV ONE; -Propofol 200 MG/20 ML SDV ONE; -Rocuronium 50 MG/5 ML Vial ONE; +Sodium Chloride 0.9% 10 ML Syringe FLUSH PRN; -ceFAZolin 1 GM Vial ONE; -fentaNYL 100 MCG/2 ML SDV ONE; -fentaNYL 250 MCG/5 ML SDV ONE
[2017-07-14] MEDS ORDERED: Bupivacaine 0.25% 30 ML SDV ONE (07:33)
[2017-07-14] MEDS ORDERED: Sennosides 8.6 MG Tab PO PRN (08:50)
[2017-07-14] MEDS ORDERED: Magnesium Hydroxide 400 MG/5 ML Susp 30 ML Cup PO PRN (08:50)
[2017-07-14] MEDS ORDERED: Naloxone 0.4 MG/ML SDV IVPUSH PRN (08:50)
[2017-07-14] MEDS ORDERED: Bisacodyl 5 MG Tab PO PRN (08:50)
[2017-07-14] MEDS ORDERED: Ondansetron 4 MG/2 ML SDV IVPUSH PRN ×2 (08:50→08:57)
[2017-07-14] MEDS ORDERED: diphenhydrAMINE 50 MG/ML SDV IVPUSH PRN ×2 (08:50→08:57)
[2017-07-14] MEDS ORDERED: Docusate Sodium 100 MG Cap PO PRN (08:50)
[2017-07-14] MEDS ORDERED: Midazolam 1 MG/ML 2 ML SDV IVPUSH PRN (08:57)
[2017-07-14] MEDS: HYDROmorphone 0.5 MG/0.5 ML Syringe IVPUSH PRN ×4 (11:52→12:46)
--- NOTE | 2017-07-14 11:54 | PCM.POSTAN ---
POST ANESTHESIA ASSESSMENT - MENTAL STATUS Mental Status: Alert - VITAL SIGNS Pulse Rate: 100 SaO2: 97 Resp Rate: 12 Blood Pressure: 134/78 Temperature: 36.6 C - RESPIRATORY Respiratory Status: Respiratory Rate WNL, Airway Patent, O2 Saturation Stable, Supplemental Oxygen - CARDIOVASCULAR CV Status: Pulse Rate WNL, Blood Pressure Stable - GASTROINTESTINAL GI Status: No Symptoms - POST OP HYDRATION Hydration Status: Adequate & Stable
[2017-07-14] MEDS: fentaNYL 100 MCG/2 ML SDV IVPUSH PRN ×4 (11:55→12:20)
[2017-07-14] MEDS: Acetaminophen/oxyCODONE 325-5 MG Tab PO PRN ×3 (12:39→21:36)
[2017-07-14] MEDS ORDERED: Cyclobenzaprine 10 MG Tab PO PRN (12:43)
[2017-07-14] MEDS: oxyCODONE 5 MG Tab PO PRN ×2 (13:31→20:06)
[2017-07-14] MEDS: Morphine 2 MG/ML Syringe IVPUSH PRN ×3 (13:32→23:43)
[2017-07-14] MEDS: ceFAZolin 2 GM in Premix Bag 1 BAG IV SCH ×2 (15:52→23:48)
--- NOTE | 2017-07-14 16:13 | CR ---
Right ankle: Multiple fluoroscopic spot views were obtained utilizing C-arm device in the operating room. Comparison: Previous CT right ankle study of 06/30/17. Findings: Previous fracture shows evidence of reduction. Final film shows plate and screws within the fibular shaft fracture and within the distal tibial fracture. Two pins are noted within the medial malleolus. Ankle mortise is symmetric. Fluoroscopy time given as 152 seconds. Impression: 1. Reduction and fixation of previous tibia and fibular fractures. Diagnostic code #2
[2017-07-14] MEDS: Famotidine 20 MG Tab PO SCH (20:38)
[2017-07-14] MEDS ORDERED: FLUoxetine 20 MG Cap PO SCH (21:00)
--- NOTE | 2017-07-14 21:32 | PCM.OPNOTE ---
- General Post-Op/Procedure Note Date of Surgery/Procedure: 07/14/17 Operative Procedure(s): open reduction internal fixation of right intra- articular distal tibia fracture and fibular shaft fracture with removal of external fixator Pre Op Diagnosis: open right pilon fracture with previous external fixation Post-Op Diagnosis: Same Anesthesia Technique: General ET Tube, Local Primary Surgeon: Ranjeet Larios Anesthesia Provider: Di Dinero Ropewalk Rope Maker: Marian Walker EBL in mLs: 10 Complications: None Condition: Good Free Text/Narrative:: Intake & Output 07/14/17 07/14/17 07/14/17 06:59 14:59 22:59 Intake Total 1250 Balance 1250
--- NOTE | 2017-07-14 22:54 | OR ---
DATE OF OPERATION: 07/14/2017 SURGEON: Ranjeet Larios MD OPERATION PERFORMED: Open reduction and internal fixation of right intra- articular distal tibial fracture and fibular shaft fracture with removal of external fixator. PREOPERATIVE DIAGNOSIS: Open right pilon fracture with previous external fixation. POSTOPERATIVE DIAGNOSIS: Open right pilon fracture with previous external fixation. ANESTHESIA: General endotracheal intubation with local. ANESTHESIA PROVIDER: Di Dinero CRNA. ASSISTANTS: Marian Walker PA-C. ESTIMATED BLOOD LOSS: 10 mL. COMPLICATIONS: None. CONDITION: Stable. DESCRIPTION OF PROCEDURE: The patient was identified in the preoperative holding area. Proper site was marked and identified by surgeon. The patient was taken back to the operating theater, where after adequate anesthesia, the patient's right lower extremity had a non-sterile tourniquet applied. It was then sterilely prepped and draped in the usual sterile fashion with the external fixator in place. OR time-out was performed. The patient received 2 g of IV Ancef. At this time, the right lower extremity was elevated and tourniquet was insufflated to 250 mmHg. At this time, attention was turned first to the distal tibia for intra-articular distal tibial fracture. An anterior lateral incision was made in line with the fourth ray. This was taken down to the extensor retinaculum, which was incised. The tendinous structures were then retracted medially, and a capsulotomy was performed along with stripping of the anterior compartment musculature off the tibia. At this time, the fracture apex was identified on the large anterior lateral portion. Curette and rongeur were used to remove fracture hematoma. At this time, a direct reduction was done under direct visualization. There was good cortical read. A K-wire was placed for provisional fixation. At this time, it was decided that we would lag through the plate. A Bony anterior lateral tibial locking plate was then placed, four-hole in the shaft. At this time, this was fixed using K-wires. C-arm fluoroscopy found it to be in the proper position. The piece was then lagged through the plate distally using lag by technique with drill bits. At this time, the plate was fixated to the shaft. It was noted to have adequate reduction on AP and lateral views, as well as good positioning of the plate. At this time, one more non-locking screw and then three locking screws were placed distally, and then four 3.5 cortical screws were placed using percutaneous technique proximally. At this time, it was found to have adequate reduction in the ankle mortise. Secondary to the previous open injury, a small incision was made just distal to the medial malleolus, and two 0.062 K-wires were then placed and bent and cut in divergent fashion in the medial malleolus for fixation of the medial malleolus, knowing that he will come back in roughly six months to remove these. They were kept away from being buried in the bone, so that we can remove them easily in roughly six months' time. There was good fixation of the medial malleolus with symmetric ankle mortise. The previous anterior lateral portion of the tibia had fairly well reduced at this point, but it was decided that we would fix the fibular shaft as he did have significant comminution as well as shortening of the fibula. At this time, incision was made directly over the fibula laterally. Blunt dissection was taken down to the fibula. There was noted to be a significant comminution of the distal fibular shaft fracture. Using [id number] reduction clamps, I was able to achieve lengths, but there was only minimal cortical read. We were just able to assess this distally, making sure that the fibula was out to length using the dime sign and anatomic points. At this time, an eight-holed Beattie locking plate was placed laterally. This was bent to contour it to the bone. It was fixed with locking screws both proximally and distally. Once it had been secured to the bone using non-locking screws, I was able to achieve six cortices or more, both proximally and distally to the comminuted region. At this time, it was decided that we would leave the bone fragment there with bone graft. At this time, we opened Beattie Vitoss, which was then placed around the comminuted region. Before this was done, adequate saline was irrigated through both wounds. A final fluoroscopic view showed good fixation and reduction of the fibular shaft as well as the previous fractures. The Vitoss was then placed. A 3-0 Vicryl was used for both the coverage of the plates, as well as for repair of the extensor retinaculum. A 2-0 Vicryl was used subcutaneously and loilta were used for the skin. The patient was placed in a sterile soft dressing as well as a posterior slab splint. DISPOSITION: He tolerated the procedure well, and was sent to the PACU in stable condition. JANETT /[id number]
[2017-07-15] MEDS: Acetaminophen/oxyCODONE 325-5 MG Tab PO PRN ×4 (00:25→12:57)
[2017-07-15] MEDS: oxyCODONE 5 MG Tab PO PRN ×2 (03:22→10:57)
[2017-07-15] MEDS: ceFAZolin 2 GM in Premix Bag 1 BAG IV SCH (08:04)
[2017-07-15] MEDS: Famotidine 20 MG Tab PO SCH (08:04)
[2017-07-15] MEDS ORDERED: Lisinopril 10 MG Tab PO SCH (09:00)
[2017-07-15] MEDS ORDERED: Aspirin 325 MG Tab.EC PO SCH (09:00)
--- NOTE | 2017-07-15 13:09 | PCM.SURGPN ---
- General Info Date of Service: 07/15/17 POD#: 1 Functional Status: Reports: Pain Controlled, Tolerating Diet, Ambulating, Urinating - Review of Systems General: Denies: Fever, Chills Musculoskeletal: Reports: Other (The pt reports his pain is controlled. He notes "throbbing" discomfort at RLE.) - Patient Data Vitals - Most Recent: Last Vital Signs Temp 98.2 F 07/15/17 07:34 Pulse 94 07/15/17 07:34 Resp 14 07/15/17 07:34 BP 140/80 07/15/17 08:04 Pulse Ox 96 07/15/17 08:35 Weight - Most Recent: 180 lb 4.8 oz I&O - Last 24 Hours: Intake & Output 07/14/17 07/15/17 07/15/17 22:59 06:59 14:59 Intake Total 1490 600 180 Balance 1490 600 180 Med Orders - Current: Current Medications Aspirin (Ecotrin) 325 mg PO BID [facility] Last Admin: 07/15/17 08:04 Dose: 325 mg Bisacodyl (Dulcolax) 5 mg PO DAILY PRN PRN Reason: Constipation Cyclobenzaprine HCl (Flexeril) 10 mg PO TID PRN PRN Reason: Spasms Diphenhydramine HCl (Benadryl) 25 mg IVPUSH Q4H PRN PRN Reason: Nausea Docusate Sodium (Colace) 100 mg PO BID PRN PRN Reason: Constipation Famotidine (Pepcid) 20 mg PO BID [facility] Last Admin: 07/15/17 08:04 Dose: 20 mg Fluoxetine HCl (Prozac) 20 mg PO BEDTIME [facility] Last Admin: 07/14/17 20:38 Dose: 20 mg Lisinopril (Prinivil) 10 mg PO DAILY [facility] Last Admin: 07/15/17 08:04 Dose: 10 mg Magnesium Hydroxide (Milk Of Magnesia) 30 ml PO BID PRN PRN Reason: Constipation Morphine Sulfate (Morphine) 2 mg IVPUSH Q2H PRN PRN Reason: Breakthrough Pain Last Admin: 07/14/17 23:43 Dose: 2 mg Naloxone HCl (Narcan) 0.1 mg IVPUSH Q5M PRN PRN Reason: Oversedation Ondansetron HCl (Zofran) 4 mg IVPUSH Q6H PRN PRN Reason: Nausea/Vomiting Oxycodone HCl (Oxycodone) 5 mg PO Q6H PRN PRN Reason: Pain Last Admin: 07/15/17 10:57 Dose: 5 mg Oxycodone/Acetaminophen (Percocet 325-5 Mg) 1 - 2 tab PO Q4H PRN PRN Reason: Pain Last Admin: 07/15/17 12:57 Dose: 1 tab Senna (Senna) 8.6 mg PO BID PRN PRN Reason: Constipation Discontinued Medications Bupivacaine HCl (Marcaine 0.25%) Confirm Administered Dose 30 ml .ROUTE .STK- MED ONE Stop: 07/14/17 07:34 Diphenhydramine HCl (Benadryl) 25 mg IVPUSH Q6H PRN PRN Reason: pruritis Stop: 07/14/17 11:00 Fentanyl (Sublimaze) 50 mcg IVPUSH Q5M PRN PRN Reason: Pain Stop: 07/14/17 11:00 Last Admin: 07/14/17 12:20 Dose: 50 mcg Hydromorphone HCl (Dilaudid) 0.5 mg IVPUSH Q15M PRN PRN Reason: severe pain Stop: 07/14/17 11:00 Last Admin: 07/14/17 12:10 Dose: 0.5 mg Hydromorphone HCl (Dilaudid) 0.5 mg IVPUSH ASDIRECTED PRN PRN Reason: Pain Stop: 07/14/17 15:00 Last Admin: 07/14/17 12:46 Dose: 0.5 mg Lactated Ringer's (Ringers, Lactated) 1,000 mls @ 125 mls/hr IV ASDIRECTED [facility] Stop: 07/14/17 23:00 Last Admin: 07/14/17 07:35 Dose: 125 mls/hr Cefazolin Sodium/Dextrose 2 gm (/ Premix) 50 mls @ 100 mls/hr IV Q8H [facility] Stop: 07/15/17 08:59 Last Admin: 07/15/17 08:04 Dose: 100 mls/hr Lidocaine/Sodium Bicarbonate (Buffered Lidocaine 1% In Ns 8.4%) 0.25 ml .XX ONETIME PRN PRN Reason: Prior to IV Start Stop: 07/14/17 18:00 Midazolam HCl (Versed 1 Mg/Ml) 2 mg IVPUSH ONETIME PRN PRN Reason: Sedation Stop: 07/14/17 11:00 Ondansetron HCl (Zofran) 4 mg IVPUSH ONETIME PRN PRN Reason: Nausea/Vomiting Stop: 07/14/17 11:00 Sodium Chloride (Saline Flush) 10 ml FLUSH ASDIRECTED PRN PRN Reason: Keep Vein Open Stop: 07/14/17 18:00 - Exam Wound/Incisions: Dressing Dry and Intact General: Alert, Cooperative, No Acute Distress Lungs: Normal Respiratory Effort Extremities: Other (The pt was able to flex and extend toes of right foot.) - Problem List Review Problem List Initiated/Reviewed/Updated: Yes - My Orders Last 24 Hours: Active Orders 24 hr Category Date Time Status Ready for Discharge [RC] PER UNIT ROUTINE Care 07/15/17 09:49 Active Regular Diet [DIET] Diet 07/14/17 Dinner Active Aspirin [Ecotrin] Med 07/15/17 09:00 Active 325 mg PO BID Cyclobenzaprine [Flexeril] Med 07/14/17 12:43 Active 10 mg PO TID PRN FLUoxetine [PROzac] Med 07/14/17 21:00 Active 20 mg PO BEDTIME Famotidine [Pepcid] Med 07/14/17 21:00 Active 20 mg PO BID Lisinopril [Prinivil] Med 07/15/17 09:00 Active 10 mg PO DAILY oxyCODONE Med 07/14/17 12:42 Active 5 mg PO Q6H PRN Weight bearing status [OM.PC] Routine Oth 07/14/17 12:46 Ordered Medication Orders Aspirin (Ecotrin) 325 mg PO BID [facility] Last Admin: 07/15/17 08:04 Dose: 325 mg Bisacodyl (Dulcolax) 5 mg PO DAILY PRN PRN Reason: Constipation Cyclobenzaprine HCl (Flexeril) 10 mg PO TID PRN PRN Reason: Spasms Diphenhydramine HCl (Benadryl) 25 mg IVPUSH Q4H PRN PRN Reason: Nausea Docusate Sodium (Colace) 100 mg PO BID PRN PRN Reason: Constipation Famotidine (Pepcid) 20 mg PO BID [facility] Last Admin: 07/15/17 08:04 Dose: 20 mg Admin: 07/14/17 20:38 Dose: 20 mg Fluoxetine HCl (Prozac) 20 mg PO BEDTIME [facility] Last Admin: 07/14/17 20:38 Dose: 20 mg Lisinopril (Prinivil) 10 mg PO DAILY [facility] Last Admin: 07/15/17 08:04 Dose: 10 mg Magnesium Hydroxide (Milk Of Magnesia) 30 ml PO BID PRN PRN Reason: Constipation Morphine Sulfate (Morphine) 2 mg IVPUSH Q2H PRN PRN Reason: Breakthrough Pain Last Admin: 07/14/17 23:43 Dose: 2 mg Admin: 07/14/17 15:51 Dose: 2 mg Admin: 07/14/17 13:32 Dose: 2 mg Naloxone HCl (Narcan) 0.1 mg IVPUSH Q5M PRN PRN Reason: Oversedation Ondansetron HCl (Zofran) 4 mg IVPUSH Q6H PRN PRN Reason: Nausea/Vomiting Oxycodone HCl (Oxycodone) 5 mg PO Q6H PRN PRN Reason: Pain Last Admin: 07/15/17 10:57 Dose: 5 mg Admin: 07/15/17 03:22 Dose: 5 mg Admin: 07/14/17 20:06 Dose: 5 mg Admin: 07/14/17 13:31 Dose: 5 mg Oxycodone/Acetaminophen (Percocet 325-5 Mg) 1 - 2 tab PO Q4H PRN PRN Reason: Pain Last Admin: 07/15/17 12:57 Dose: 1 tab Admin: 07/15/17 09:14 Dose: 2 tab Admin: 07/15/17 05:10 Dose: 2 tab Admin: 07/15/17 00:25 Dose: 2 tab Admin: 07/14/17 21:36 Dose: 2 tab Admin: 07/14/17 16:35 Dose: 2 tab Admin: 07/14/17 12:39 Dose: 1 tab Senna (Senna) 8.6 mg PO BID PRN PRN Reason: Constipation - Assessment Assessment (Free Text/Narrative):: POD#1 - removal of ex fixator at RLE and ORIF right open right pilon fx and right fibula fx - Plan Plan (Free Text/Narrative):: 1. Finish Lovenox and then transition to 325mg ASA BID. 2. Follow-up at an outpatient. 3. Percocet and Flexeril for pain management. Dr. Larios evaluated the pt today.
[2017-07-15 13:14] VITALS: BP 140/85
--- NOTE | 2017-07-16 10:09 | PCM.DCSUM1 ---
Discharge Summary - Hospital Course Brief History: Carlito is a 42 yo male who underwent removal of external fixator and ORIF of right pilon fx with ORIF of right fibula fx with Dr. Larios on 2016. The procedure was completed under general anesthesia. The pt tolerated the procedure well and was admitted to the Medical-Surgical Unit for monitoring and pain management. The pt's Hospital course was uneventful. On POD#1, 325mg BID was initiated for VTE prophylaxis. SCDs and TEDs were also ordered. A splint and bandages were placed at the RLE at the time of surgery and remained clean and dry. The pt participated in P.T. and progressed well. He was NWB for RLE and used crutches for mobility. On POD#1, the pt was deemed appropriate to discharge to home with his . - Discharge Data Discharge Date: 07/15/17 Discharge Disposition: Home, Self-Care 01 Condition: Good - Patient Summary/Data Operative Procedure(s) Performed: open reduction internal fixation of right intra-articular distal tibia fracture and fibular shaft fracture with removal of external fixator Consults: Consultations 07/14/17 08:53 PT Evaluation and Treatment [CONS] Routine - Patient Instructions Diet: Usual Diet as Tolerated Activity: Apply Ice, As Tolerated, Elevate Extremity, Non Weight Bearing Driving: Do Not Drive Showering/Bathing: May Shower Wound/Incision Care: Keep Operative Site/Wound Site Clean and Dry, Do NOT Change Dressing Notify Provider of: Fever, Increased Pain, Swelling and Redness, Drainage, Nausea and/or Vomiting Other/Special Instructions: Please get up and moving around every hour while awake. This helps to prevent blood clots. Please use your walker or crutches and have help as needed. Take a 325mg ASPIRIN TWICE DAILY. This also helps to prevent blood clots. The aspirin is being used for blood clot prevention and not for pain management, so please do not miss a dose of the medication. Use the pain medication as needed. The medication may cause drowsiness and constipation. Contact your primary care provider for instructions if you are constipated. You may use a stool softener like docusate sodium or Colace 100mg twice daily and/or a laxative like Miralax daily for constipation. Use the ice machine often. Elevate the limb to decrease swelling. Keep the dressings in place until follow-up. Notify the Clinic if the dressing is saturated. Wear the EDMOND hose during the day and you may remove these at night. Eat a diet high in protein as this well help with healing. Schedule an appointment with your primary care provider for 'routine post-op care'. Call the Clinic with questions or concerns - [phone]. - Discharge Plan Home Medications: Home Meds FLUoxetine [PROzac] 20 mg PO BEDTIME 06/28/17 [History] Lisinopril 10 mg PO DAILY 06/28/17 [History] Acetaminophen/oxyCODONE [Percocet 325-5 MG] 1 - 2 tab PO Q4H PRN tablet [Rx] Aspirin [Ecotrin] 325 mg PO BID tab.ec 07/15/17 [Rx] Bisacodyl [Dulcolax] 5 mg PO DAILY PRN tablet 07/15/17 [Rx] Cyclobenzaprine [Flexeril] 10 mg PO TID PRN tablet 07/15/17 [Rx] Docusate Sodium [Colace] 100 mg PO BID PRN cap 07/15/17 [Rx] Famotidine [Pepcid] 20 mg PO BID tablet 07/15/17 [Rx] Magnesium Hydroxide [Milk of Magnesia] 30 ml PO BID PRN cup 07/15/17 [Rx] Sennosides [Senna] 8.6 mg PO BID PRN tablet 07/15/17 [Rx] oxyCODONE 5 mg PO Q6H PRN tablet 07/15/17 [Rx] Patient Handouts: Smoking Cessation, Tips for Success, [id number], Medial or Posterior Malleolus Fracture Treated With ORIF, Care After Referrals: Marian Walker PA-C [Physician Recreational Specialist] - - Patient Data Vitals - Most Recent: Last Vital Signs Temp 98.2 F 07/15/17 07:34 Pulse 95 07/15/17 12:21 Resp 15 07/15/17 12:21 BP 140/85 07/15/17 12:21 Pulse Ox 96 07/15/17 12:21 Weight - Most Recent: 180 lb 4.8 oz I&O - Last 24 hours: Intake & Output 07/15/17 07/16/17 07/16/17 22:59 06:59 14:59 Intake Total 240 Balance 240 Med Orders - Current: Current Medications Discontinued Medications Aspirin (Ecotrin) 325 mg PO BID [facility] Last Admin: 07/15/17 08:04 Dose: 325 mg Bisacodyl (Dulcolax) 5 mg PO DAILY PRN PRN Reason: Constipation Bupivacaine HCl (Marcaine 0.25%) Confirm Administered Dose 30 ml .ROUTE .STK- MED ONE Stop: 07/14/17 07:34 Cyclobenzaprine HCl (Flexeril) 10 mg PO TID PRN PRN Reason: Spasms Diphenhydramine HCl (Benadryl) 25 mg IVPUSH Q4H PRN PRN Reason: Nausea Diphenhydramine HCl (Benadryl) 25 mg IVPUSH Q6H PRN PRN Reason: pruritis Stop: 07/14/17 11:00 Docusate Sodium (Colace) 100 mg PO BID PRN PRN Reason: Constipation Famotidine (Pepcid) 20 mg PO BID [facility] Last Admin: 07/15/17 08:04 Dose: 20 mg Fentanyl (Sublimaze) 50 mcg IVPUSH Q5M PRN PRN Reason: Pain Stop: 07/14/17 11:00 Last Admin: 07/14/17 12:20 Dose: 50 mcg Fluoxetine HCl (Prozac) 20 mg PO BEDTIME [facility] Last Admin: 07/14/17 20:38 Dose: 20 mg Hydromorphone HCl (Dilaudid) 0.5 mg IVPUSH Q15M PRN PRN Reason: severe pain Stop: 07/14/17 11:00 Last Admin: 07/14/17 12:10 Dose: 0.5 mg Hydromorphone HCl (Dilaudid) 0.5 mg IVPUSH ASDIRECTED PRN PRN Reason: Pain Stop: 07/14/17 15:00 Last Admin: 07/14/17 12:46 Dose: 0.5 mg Lactated Ringer's (Ringers, Lactated) 1,000 mls @ 125 mls/hr IV ASDIRECTED [facility] Stop: 07/14/17 23:00 Last Admin: 07/14/17 07:35 Dose: 125 mls/hr Cefazolin Sodium/Dextrose 2 gm (/ Premix) 50 mls @ 100 mls/hr IV Q8H [facility] Stop: 07/15/17 08:59 Last Admin: 07/15/17 08:04 Dose: 100 mls/hr Lidocaine/Sodium Bicarbonate (Buffered Lidocaine 1% In Ns 8.4%) 0.25 ml .XX ONETIME PRN PRN Reason: Prior to IV Start Stop: 07/14/17 18:00 Lisinopril (Prinivil) 10 mg PO DAILY [facility] Last Admin: 07/15/17 08:04 Dose: 10 mg Magnesium Hydroxide (Milk Of Magnesia) 30 ml PO BID PRN PRN Reason: Constipation Midazolam HCl (Versed 1 Mg/Ml) 2 mg IVPUSH ONETIME PRN PRN Reason: Sedation Stop: 07/14/17 11:00 Morphine Sulfate (Morphine) 2 mg IVPUSH Q2H PRN PRN Reason: Breakthrough Pain Last Admin: 07/14/17 23:43 Dose: 2 mg Naloxone HCl (Narcan) 0.1 mg IVPUSH Q5M PRN PRN Reason: Oversedation Ondansetron HCl (Zofran) 4 mg IVPUSH Q6H PRN PRN Reason: Nausea/Vomiting Ondansetron HCl (Zofran) 4 mg IVPUSH ONETIME PRN PRN Reason: Nausea/Vomiting Stop: 07/14/17 11:00 Oxycodone HCl (Oxycodone) 5 mg PO Q6H PRN PRN Reason: Pain Last Admin: 07/15/17 10:57 Dose: 5 mg Oxycodone/Acetaminophen (Percocet 325-5 Mg) 1 - 2 tab PO Q4H PRN PRN Reason: Pain Last Admin: 07/15/17 12:57 Dose: 1 tab Senna (Senna) 8.6 mg PO BID PRN PRN Reason: Constipation Sodium Chloride (Saline Flush) 10 ml FLUSH ASDIRECTED PRN PRN Reason: Keep Vein Open Stop: 07/14/17 18:00 *Q Meaningful Use (DIS) - VTE *Q VTE Criteria *Q: - Stroke *Q Stroke Criteria *Q: - AMI *Q AMI Criteria *Q:
== END 2017-07-15 13:03 | disposition home or self-care (01) | DRG 494 ==
LOC: JD.MS 07:06 → EDSTATUS 14:30
PROVIDERS: ADMIT Orthopaedic Surgery; ATTEND Orthopaedic Surgery
PROC: 0QSJ04Z Reposition Right Fibula with Internal Fixation Device, Open Approach (ICD-10-PCS; principal; 2017-07-14)
PROC: 0QSG04Z Reposition Right Tibia with Internal Fixation Device, Open Approach (ICD-10-PCS; 2017-07-14)
PROC: 2W5LXYZ Removal of Other Device on Right Lower Extremity (ICD-10-PCS; 2017-07-14)
DX: S82.871B Displaced pilon fracture of right tibia, initial encounter for open fracture type I or II (principal); V80.010A Animal-rider injured by fall from or being thrown from horse in noncollision accident, initial encounter; I10 Essential (primary) hypertension; F41.9 Anxiety disorder, unspecified; Z79.899 Other long term (current) drug therapy; F17.200 Nicotine dependence, unspecified, uncomplicated
CPT/HCPCS: 01480; 76000; 76000-26; 87641; 94760; 97116-GP; 97161-GP; 97535-GP; A9270-GY; C1713; C1768; C1776; J0690; J1100; J1170; J1885; J2250; J2270; J2405; J2704; J2710; J3010; J3490; J7120

== ENCOUNTER → 2017-07-14 | Day surgery (SDC) | payer OTHER ==
[~2017-07-14] MED LIST: Dexamethasone 4 MG/ML 5 ML MDV ONE; Glycopyrrolate 0.2 MG/ML SDV ONE; HYDROmorphone 1 MG/ML Syringe ONE; Ketorolac 30 MG/ML SDV ONE; Lactated Ringers 2,000 ML ONE; Lidocaine 1% 4 ML ONE; Midazolam 1 MG/ML 2 ML SDV ONE; Neostigmine Methylsulfate 10 MG/10 ML MDV ONE; Ondansetron 4 MG/2 ML SDV ONE; Propofol 200 MG/20 ML SDV ONE; Rocuronium 50 MG/5 ML Vial ONE; ceFAZolin 1 GM Vial ONE; fentaNYL 100 MCG/2 ML SDV ONE; fentaNYL 250 MCG/5 ML SDV ONE
== END ==
LOC: JD.SDS 07:44
PROVIDERS: ATTEND Orthopaedic Surgery
DX: S82.871B Displaced pilon fracture of right tibia, initial encounter for open fracture type I or II (principal); S82.451A Displaced comminuted fracture of shaft of right fibula, initial encounter for closed fracture; I10 Essential (primary) hypertension; F41.9 Anxiety disorder, unspecified; K59.00 Constipation, unspecified; F32.9 Major depressive disorder, single episode, unspecified; F17.210 Nicotine dependence, cigarettes, uncomplicated; V80.010A Animal-rider injured by fall from or being thrown from horse in noncollision accident, initial encounter; Z79.899 Other long term (current) drug therapy; Z98.890 Other specified postprocedural states
CPT/HCPCS: 27784; 27827; 87641; J0690; J1100; J1170; J2250; J2405; J2710; J3010; J3490; J7120; J1885; J2704